=== PATIENT | male | born 1995 | race African-American/Black ===

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

== ENCOUNTER 2018-07-28 18:25 | Emergency (ER) | payer MEDICAID, OTHER ==
[2018-07-28] MEDS ORDERED: IPRATROPIUM/ALBUTEROL 0.5-2.5 MG/3 ML AMPUL NEB ONE (19:37)
[2018-07-28] MEDS ORDERED: PREDNISONE 20 MG TABLET PO ONE (19:38)
--- NOTE | 2018-07-28 19:42 | ER Document Report ---
ED Respiratory Problem - General Chief Complaint: Asthma Exacerbation Stated Complaint: DIFFICULTY BREATHING Time Seen by Provider: 07/28/18 19:37 Mode of Arrival: Ambulatory Information source: Patient Notes: 23-year-old male presented to ED for complaint of exacerbation of asthma with wheezing and shortness of breath. He states that he was seen last night by EMS and given a breathing treatment and then refused to come to the emergency room and stayed home. He states he is out of his albuterol nebulizer at home and became very short of breath and difficulty breathing today so his sister brought him to the emergency room. Patient does have a O2 sat of 99% but he is wheezing inspiratory and expiratory. He is short of breath. Patient will be treated with 1 DuoNeb and 2 albuterol as well as prednisone get a chest x-ray and if the chest x-ray does not show pneumonia he will be discharged home with refills for his DuoNeb as well as a prescription for prednisone. TRAVEL OUTSIDE OF THE [place] IN LAST 30 DAYS: No - HPI Patient complains to provider of: Cough, Short of breath, Other Onset: Yesterday - Wheezing Duration: Intermittent episodes Initiating Event: URI Quality of pain: Other - Tight Severity: Mild Pain Level: 1 Context: Hx asthma Cough: Nonproductive Sputum amount: None At home treatment: Bronchodilators Associated symptoms: Cough, Short of breath, Wheezing Similar symptoms previously: Yes Recently seen / treated by doctor: No - Related Data Allergies/Adverse Reactions: No Known Allergies Allergy (Verified 02/28/15 20:39) Past Medical History - General Information source: Patient - Social History Smoking Status: Never Smoker Frequency of alcohol use: None Drug Abuse: None Occupation: Sorting recycling Lives with: Family Family History: Arthritis, DM, Hypertension, Malignancy Patient has suicidal ideation: No Patient has homicidal ideation: No - Past Medical History Cardiac Medical History: Reports: Hx Hypertension Pulmonary Medical History: Reports: Hx Asthma EENT Medical History: Reports: None Neurological Medical History: Reports: None Endocrine Medical History: Reports: None Renal/ Medical History: Reports: None Malignancy Medical History: Reports None GI Medical History: Reports: None Musculoskeletal Medical History: Reports Hx Musculoskeletal Trauma Skin Medical History: Reports None Psychiatric Medical History: Reports: Hx Attention Deficit Hyperactivity Disorder Traumatic Medical History: Reports: None Infectious Medical History: Reports: None Past Surgical History: Reports: Hx Adenoidectomy, Hx Tonsillectomy - Immunizations Hx Diphtheria, Pertussis, Tetanus Vaccination: Yes Review of Systems - Review of Systems Constitutional: No symptoms reported EENT: No symptoms reported Cardiovascular: No symptoms reported Respiratory: Cough, Short of breath, Wheezing Gastrointestinal: No symptoms reported Genitourinary: No symptoms reported Male Genitourinary: No symptoms reported Musculoskeletal: No symptoms reported Skin: No symptoms reported Hematologic/Lymphatic: No symptoms reported Neurological/Psychological: No symptoms reported -: Yes All other systems reviewed and negative Physical Exam - Vital signs Vitals: Temp Pulse Resp BP Pulse Ox 99.2 F 64 20 145/77 H 99 07/28/18 18:29 07/28/18 18:29 07/28/18 18:29 07/28/18 18:29 07/28/18 18:29 Interpretation: Normal - General General appearance: Appears well, Alert - HEENT Head: Normocephalic, Atraumatic Eyes: Normal Pupils: PERRL - Respiratory Respiratory status: No respiratory distress Chest status: Nontender Breath sounds: Nonproductive cough, Wheezing. No: Productive cough, Rales, Rhonchi, Stridor Chest palpation: Normal - Cardiovascular Rhythm: Regular Heart sounds: Normal auscultation Murmur: No - Abdominal Inspection: Normal Distension: No distension Bowel sounds: Normal Tenderness: Nontender Organomegaly: No organomegaly - Back Back: Normal, Nontender - Extremities General upper extremity: Normal inspection, Nontender, Normal color, Normal ROM, Normal temperature General lower extremity: Normal inspection, Nontender, Normal color, Normal ROM, Normal temperature, Normal weight bearing. No: Shanika's sign - Neurological Neuro grossly intact: Yes Cognition: Normal Orientation: AAOx4 Kristy Coma Scale Eye Opening: Spontaneous Kristy Coma Scale Verbal: Oriented [place] Coma Scale Motor: Obeys Commands [place] Coma Scale Total: 15 Speech: Normal Motor strength normal: LUE, RUE, LLE, RLE Sensory: Normal - Psychological Associated symptoms: Normal affect, Normal mood - Skin Skin Temperature: Warm Skin Moisture: Dry Skin Color: Normal Course - Re-evaluation Re-evalutation: 07/28/18 21:15 Patient treated with prednisone, DuoNeb, and 2 albuterol nebulizers. Patient's lungs are clear to auscultation he is able to speak in full sentences walks with a even steady gait and has been discharged home with a prescription for albuterol for his nebulizer as well as albuterol inhaler. He is also been sent home with a prescription for prednisone. Patient is to follow-up with his prior primary doctor. Patient has been given instructions not to wait till he gets in such bad condition before he comes back again. - Vital Signs Vital signs: Temp Pulse Resp BP Pulse Ox 98.2 F 69 17 145/70 H 100 07/28/18 21:03 07/28/18 21:03 07/28/18 21:03 07/28/18 21:03 07/28/18 21:03 - Diagnostic Test Radiology reviewed: Image reviewed, Reports reviewed Discharge - Discharge Clinical Impression: Asthma exacerbation Qualifiers: Asthma severity: moderate Asthma persistence: unspecified Qualified Code(s): J45.901 - Unspecified asthma with (acute) exacerbation Condition: Stable Disposition: HOME, SELF-CARE Instructions: Family Physicians / Practices Additional Instructions: ASTHMA: You have been diagnosed as having asthma. This is a condition where there is episodic tightness in the bronchial tubes. Allergies, infections, and polluted or cold air may be contributing factors. Emergency treatment of a severe asthma attack may include adrenaline shots, or bronchodilator aerosol. You may feel lightheaded, have a decreased exercise tolerance and a rapid pulse for an hour or two. Rest and get plenty of fluids. Home treatment of asthma requires bronchodilator drugs. These can be admin istered by injection, inhalation, or by mouth. Antibiotics and corticosteroids may be required for some patients. You should avoid chemical fumes, dusts, pollens, and exercising in very cold or dry air. If you smoke, stop!! If you develop a fever, increased wheezing, chest pain, or severe shortness of breath, you should contact the doctor immediately. STEROID MEDICATION: You have been given an injection of or oral medicine of the cortisone/steroid class. This medication is used to control inflammation or allergy. Morgan t is usually only given for a short period of time, until the acute process subsides. There are usually no side effects from short-term use of cortisone-like medications. Some persons feel an increased sense of well-being and are not sleepy at bedtime. Long-term use of cortisone medications is best avoided, unless required for a severe condition. If your condition does not remit, or relapses after the course of corticosteroid medication, you should consult your physician. INHALED BRONCHODILATORS: You have received treatment(s) of and/or prescription for an inhaled bronchodilator -- a medication which stimulates the airways in the lung to dilate. This improves the flow of air in asthma, bronchitis, and emphysema. These medicines have some similarity to adrenaline, and can cause similar side effects: shakiness, racing heart, and a sense of nervousness. These side effects decrease with time. Contact your doctor if these side effects are severe. Do not over-use the medicine. Too-frequent use of the inhaler may make it ineffective. Call your doctor if the inhaler is not controlling your symptoms at the prescribed doses. USE OF ACETAMINOPHEN (Tylenol): Acetaminophen may be taken for pain relief or fever control. It's much safer than aspirin, offering a wider range of "safe" dosages. It is safe during . Some brand names are Tylenol, Panadol, Datril, Anacin 3, Tempra, and Liquiprin. Acetaminophen can be repeated every four hours. The following are maximum recommended dosages: WEIGHT Dose Drops Elixir Chewable(80mg) (LBS.) drprs=droppers tsp=teaspoon 6 40 mg 0.4 ml (1/2) 6-11 80 mg 0.8 ml (full) tsp 1 tab 12-16 120 mg 1 1/2 drprs 3/4 tsp 1 1/2 tabs 17-23 160 mg 2 drprs 1 tsp 2 tabs 24-30 240 mg 3 drprs 1 1/2 tsp 3 tabs 30-35 320 mg 2 tsp 4 tabs 36-41 360 mg 2 1/4 tsp 4 1/2 tabs 42-47 400 mg 2 1/2 tsp 5 tabs 48-53 480 mg 3 tsp 6 tabs 54-59 520 mg 3 1/4 tsp 6 1/2 tabs 60-64 560 mg 3 1/2 tsp 7 tabs 65-70 600 mg 3 3/4 tsp 7 1/2 tabs 71-76 640 mg 4 tsp 8 tabs 77-82 720 mg 4 1/2 tsp 9 tabs 83-88 800 mg 5 tsp 10 tabs >89 pounds or adults 650 mg to 900 mg Acetaminophen can be repeated every four hours. Maximum dose not to exceed 4000 mg a day. These maximum recommended dosages are slightly higher than the dosages written on the product container, but these dosages are very safe and below the toxic dosage for acetaminophen. FOLLOW-UP CARE: If you have been referred to a physician for follow-up care, call the physicians office for an appointment as you were instructed or within the next two days. If you experience worsening or a significant change in your symptoms, notify the physician immediately or return to the Emergency Department at any time for re-evaluation. Prescriptions: Albuterol Sulfate [Ventolin 0.083% Neb 2.5 mg/3 mL Ampul] 2.5 mg NEB Q4HP PRN #25 vial.neb PRN Reason: Prednisone [Deltasone 20 mg Tablet] 3 tab PO DAILY 5 Days tablet Forms: Elevated Blood Pressure, Parent Work Note, Return to Work
--- NOTE | 2018-07-28 20:23 | RADIOLOGY REPORT (SQ) ---
EXAM DESCRIPTION: XR CHEST 2 VIEWS COMPLETED DATE/TME: 07/28/2018 19:38 CLINICAL HISTORY: 23 years, Male, cough asthma exacerbation COMPARISON: EXAM DESCRIPTION: CLINICAL HISTORY: cough asthma exacerbation COMPARISON: None. FINDINGS: Two views of the chest are submitted. Cardiac silhouette appears normal. No focal parenchymal or pleural disease. No acute bony abnormality. There is no significant pulmonary vascular engorgement. IMPRESSION: No evidence of acute cardiopulmonary disease. NUMBER OF VIEWS: TECHNIQUE: LIMITATIONS: None. FINDINGS: IMPRESSION: copyright 2010 [employer]- All Rights Reserved
[2018-07-28] MEDS: ALBUTEROL SULFATE 0.083% NEB 2.5 MG/3 ML AMPUL NEB SCH ×2 (20:28→20:48)
[2018-07-28 21:04] VITALS: BP 145/70
[2018-07-28] MEDS ORDERED: ALBUTEROL SULFATE HFA (90 MCG/PUFF) 8 GM MDI (1 MDI/ER DISP) IH ONE (21:08)
== END 2018-07-28 21:20 | disposition home or self-care (01) ==
LOC: ER 18:25
DX: J45.901 Unspecified asthma with (acute) exacerbation (principal); R06.02 Shortness of breath; R05 Cough; I10 Essential (primary) hypertension
CPT/HCPCS: 94640 ×2; 99284; 71046; J7512; J3490; J7620

== ENCOUNTER 2018-09-25 09:56 | Emergency (ER) | payer MEDICAID ==
[2018-09-25 10:05] VITALS: BP 118/62
[2018-09-25] MEDS ORDERED: HYDROCODONE/ACETAMINOPHEN 5-325 MG TABLET PO ONE (10:26)
--- NOTE | 2018-09-25 10:40 | ER Document Report ---
HPI - HPI Patient complains to provider of: Right shoulder, right hand pain Time Seen by Provider: 09/25/18 10:21 Quality of pain: Achy Pain Level: 2 Context: Patient states that he injured his right shoulder playing football 4 years ago and has had chronic intermittent right shoulder pain since then. Patient denies any new injury to the shoulder. Patient also complains of right hand pain that started yesterday after dropping a weight on his hand. Patient is right-hand dominant. Patient complains of right hand swelling. Patient was told that he would need surgery on his shoulder but he never followed up. Associated Symptoms: Other - Right hand, right shoulder pain Exacerbated by: Movement Relieved by: Denies Similar symptoms previously: Yes Recently seen / treated by doctor: No - ROS ROS below otherwise negative: Yes Systems Reviewed and Negative: Yes All other systems reviewed and negative - CONSTITUTIONAL Constitutional: DENIES: Fever, Chills - NEURO Neurology: DENIES: Weakness - MUSCULOSKELETAL Musculoskeletal: REPORTS: Extremity pain - R shoulder, R hand. DENIES: Back Pain, Neck Pain - DERM Skin Color: Normal Skin Problems: None Past Medical History - General Information source: Patient - Social History Smoking Status: Never Smoker Chew tobacco use (# tins/day): No Frequency of alcohol use: None Drug Abuse: None Occupation: none Lives with: Family Family History: Arthritis, DM, Hypertension, Malignancy Patient has suicidal ideation: No Patient has homicidal ideation: No Pulmonary Medical History: Reports: Hx Asthma Renal/ Medical History: Denies: Hx Peritoneal Dialysis Musculoskeletal Medical History: Reports Hx Musculoskeletal Trauma Psychiatric Medical History: Reports: Hx Attention Deficit Hyperactivity Disorder Past Surgical History: Reports: Hx Adenoidectomy, Hx Tonsillectomy - Immunizations Hx Diphtheria, Pertussis, Tetanus Vaccination: Yes Vertical Provider Document - CONSTITUTIONAL Agree With Documented VS: Yes Exam Limitations: No Limitations General Appearance: WD/WN, No Apparent Distress - INFECTION CONTROL TRAVEL OUTSIDE OF THE [place] IN LAST 30 DAYS: No - HEENT HEENT: Atraumatic, Normocephalic - NECK Neck: Normal Inspection, Supple - RESPIRATORY Respiratory: Breath Sounds Normal, No Respiratory Distress - CARDIOVASCULAR Cardiovascular: Regular Rate, Regular Rhythm Pulses: Normal: Radial - BACK Back: Normal Inspection - MUSCULOSKELETAL/EXTREMETIES Musculoskeletal/Extremeties: MAEW, FROM, Tender - Tenderness to right shoulder joint over AC joint with abduction, patient with full range of motion, no d islocation or deformity. Patient with right hand tenderness over fifth MCP joint with overlying edema. No radial medial or ulnar nerve deficits., Edema - r hand - NEURO Level of Consciousness: Awake, Alert, Appropriate Motor/Sensory: No Motor Deficit, No Sensory Deficit - DERM Integumentary: Warm, Dry, No Rash Course - Vital Signs Vital signs: Temp Pulse Resp BP Pulse Ox 98.3 F 80 18 118/62 97 09/25/18 10:04 09/25/18 10:04 09/25/18 10:04 09/25/18 10:04 09/25/18 10:04 - Diagnostic Test Radiology reviewed: Image reviewed, Reports reviewed Procedures - Immobilization Right Hand Pre-Proc Neuro Vasc Exam: Normal Immobilizer type: Bravo wrap Performed by: PCT Post-Proc Neuro Vasc Exam: Normal Alignment checked and good: Yes Discharge - Discharge Clinical Impression: Right hand pain Chronic shoulder pain Qualifiers: Laterality: right Qualified Code(s): M25.511 - Pain in right shoulder Sprain of right hand Qualifiers: Encounter type: initial encounter Qualified Code(s): S63.91XA - Sprain of unspecified part of right wrist and hand, initial encounter Condition: Stable Disposition: HOME, SELF-CARE Instructions: Bravo Wrap ([facility]), Ice & Elevation ([facility]), Shoulder Injury ([facility]), Sprain ([facility]) Additional Instructions: Return immediately for any new or worsening symptoms Followup with your primary care provider, call tomorrow to make a followup appointment Follow-up with orthopedics for further evaluation, call today to make a follow- up appointment Prescriptions: Naproxen [Naprosyn 250 Nmg Tablet] 1 tab PO BID #14 tablet Referrals: [facility] [Provider Group] - Follow up as needed
--- NOTE | 2018-09-25 10:58 | RADIOLOGY REPORT (SQ) ---
EXAM DESCRIPTION: SHOULDER RIGHT 2 OR MORE VIEWS COMPLETED DATE/TIME: 09/25/2018 10:49 am REASON FOR STUDY: r shoulder pain, hx dislocation COMPARISON: None. NUMBER OF VIEWS: Three views. TECHNIQUE: Internal rotation, external rotation, and Y view images acquired of the right shoulder. LIMITATIONS: None. FINDINGS: MINERALIZATION: Normal. BONES: No acute fracture or dislocation. No worrisome bone lesions. JOINTS: No dislocation. The glenohumeral joint is in anatomic apposition at the time of imaging. VISUALIZED LUNGS AND RIBS: No pneumothorax. No rib fracture. SOFT TISSUES: No radiopaque foreign body. OTHER: No other significant finding. IMPRESSION: No fracture or dislocation of the right shoulder. The glenohumeral joint is in anatomic apposition at the time of imaging. Joint spaces are preserved. TECHNICAL DOCUMENTATION: JOB ID: [id number] [employer]- All Rights Reserved Reading location - IP/workstation name: [email or web address]
--- NOTE | 2018-09-25 10:59 | RADIOLOGY REPORT (SQ) ---
EXAM DESCRIPTION: HAND RIGHT 3 VIEWS COMPLETED DATE/TIME: 09/25/2018 10:49 am REASON FOR STUDY: r hand crushed by weight COMPARISON: 10/21/2016 EXAM PARAMETERS: NUMBER OF VIEWS: Three views. TECHNIQUE: AP, lateral and oblique radiographic images acquired of the right hand. LIMITATIONS: None. FINDINGS: MINERALIZATION: Normal. BONES: There is a healed fracture of the 5th metacarpal. No evidence of an acute fracture or disloca tion. There is slight soft tissue swelling dorsally. JOINTS: No effusions. SOFT TISSUES: No soft tissue swelling. No foreign body. OTHER: No other significant finding. IMPRESSION: Soft tissue swelling dorsally. No acute fracture. TECHNICAL DOCUMENTATION: JOB ID: [id number] [employer]- All Rights Reserved Reading location - IP/workstation name: [email or web address]
== END 2018-09-25 11:18 | disposition home or self-care (01) ==
LOC: ER 09:56
DX: S63.91XA Sprain of unspecified part of right wrist and hand, initial encounter (principal); W20.8XXA Other cause of strike by thrown, projected or falling object, initial encounter; Y93.B3 Activity, free weights; G89.29 Other chronic pain; M25.511 Pain in right shoulder; M79.641 Pain in right hand
CPT/HCPCS: 99283

== ENCOUNTER 2018-10-16 21:02 | Emergency (ER) | payer MEDICAID ==
--- NOTE | 2018-10-17 01:21 | ER Document Report ---
ED Skin Rash/Insect Bite/Abscs - General Information source: Patient, Parent TRAVEL OUTSIDE OF THE [place] IN LAST 30 DAYS: No - HPI Patient complains to provider of: Skin rash/lesion Onset: Last week Onset/Duration: Gradual, Worse Quality of pain: No pain Severity: Moderate Pain Level: 3 Skin Character: Papules. No: Blanching, Bullous, Drainage, Erythema Skin Temperature: Warm Quality of rash: No: Itchy, Painful, Burning Exacerbated by: Denies Relieved by: Denies Similar symptoms previously: No Recently seen / treated by doctor: No - General Chief Complaint: Rash Stated Complaint: SKIN PROBLEM Time Seen by Provider: 10/17/18 01:13 Primary Care Provider: MAX ESTEBAN DO [ACTIVE STAFF] - Follow up as needed Notes: Patient is a 23-year-old male comes emergency room complaining of a rash that started anywhere from 4 days to a week ago. States it started on his left arm and has since spread to both arms and both buttocks areas. Denies it being on his chest or his back no facial involvement no lower extremity involvement. Patient denies any pruritus he denies any pain he does state that there is a small patch on his left inner arm that he is not sure if it came first or after. He denies any fever or night sweats. Denies any other symptomatology except for the bumps on his buttocks and upper extremities. (OFE MURPHY) - Related Data Allergies/Adverse Reactions: No Known Allergies Allergy (Verified 02/28/15 20:39) Past Medical History - General Information source: Patient, Parent - Social History Smoking Status: Never Smoker Cigarette use (# per day): No Chew tobacco use (# tins/day): No Smoking Education Provided: No Frequency of alcohol use: None Drug Abuse: None Family History: Reviewed & Not Pertinent, Arthritis, DM, Hypertension, Malignancy - Past Medical History Cardiac Medical History: Reports: Hx Hypertension Pulmonary Medical History: Reports: Hx Asthma Renal/ Medical History: Denies: Hx Peritoneal Dialysis Musculoskeletal Medical History: Reports Hx Musculoskeletal Trauma Psychiatric Medical History: Reports: Hx Attention Deficit Hyperactivity Disorder Past Surgical History: Reports: Hx Adenoidectomy, Hx Tonsillectomy - Immunizations Hx Diphtheria, Pertussis, Tetanus Vaccination: Yes Review of Systems - Review of Systems Constitutional: No symptoms reported EENT: No symptoms reported Cardiovascular: No symptoms reported Respiratory: No symptoms reported Gastrointestinal: No symptoms reported Genitourinary: No symptoms reported Male Genitourinary: No symptoms reported Musculoskeletal: No symptoms reported Skin: See HPI, Rash Hematologic/Lymphatic: No symptoms reported Neurological/Psychological: No symptoms reported Physical Exam - Vital signs Interpretation: Hypertensive - Vital signs Vitals: Temp Pulse Resp BP Pulse Ox 98.5 F 59 L 20 142/83 H 98 10/16/18 21:34 10/16/18 21:34 10/16/18 21:34 10/16/18 21:34 10/16/18 21:34 - Notes Notes: PHYSICAL EXAMINATION: GENERAL: Well-appearing, well-nourished and in no acute distress. HEAD: Atraumatic, normocephalic. EYES: Pupils equal round and reactive to light, extraocular movements intact, sclera anicteric, conjunctiva are normal. ENT: Nares patent, oropharynx clear without exudates. Moist mucous membranes. NECK: Normal range of motion, supple without lymphadenopathy LUNGS: Breath sounds clear to auscultation bilaterally and equal. No wheezes rales or rhonchi. HEART: Regular rate and rhythm without murmurs NEUROLOGICAL: Normal speech, normal gait. Normal sensory, motor exams PSYCH: Normal mood, normal affect. SKIN: Examination patient's area of concern is as stated in his H&P is his upper extremities and is buttocks bilaterally. There is no indication of the rash on his anterior chest or back or lower extremities. Examination of this area is shows a scattered pattern of different size varying lesions that ranging from a millimeter up to 4 mm in diameter. There are darkening color and almost a tag- like presentation. They do not have a punctate middle can be visualized. There is no erythema base to them. Distribution seems to be more concentrated on the bilateral buttocks areas and less on the upper extremities. There is a area that is circular in nature on the anterior portion of the left arm it looks like some viral kind of presentation. Where it is more of a herald type patch presentation. Patient's presentation being nonpleuritic is moving his away any type of infective state or dermatitis kind of problem. (OFE MURPHY) Course - Re-evaluation Re-evalutation: 10/17/18 01:[address] Opal Carter to come in and take a look at it as well . he believes it is a a non-serious type of a presentation of rash on sure as to exactly what it is believes is more of a viral type of exanthem that will probably be self-limited and should disappear on its own after a week or 10 days. He feels as if the patient can get through the weekend if it is not starting to fade even more than he will need to follow-up with the dermatology. We will try to find him a local informatics scientist that they can contact the office to see if they can accommodate him. He is been instructed that should he spike a fever or have any other concerns return to ER for recheck. 10/17/18 01:21 (OFE MURPHY) 10/17/18 05:25 I evaluated the patient in conjunction with the physician's dental laboratory assistant. Patient is a rash actually is very similar to pityriasis and that he has a herald patch as well as multiple small erythematous nodule type areas. They are not painful. They are not pruritic. There are things that he does not have lesions on his torso. They are mainly on his extremities. He does not have fevers or systemic symptoms. Otherwise looks well. I do not see anything concerning about the rash. There is no purulence. No drainage. There is no bullae. No purpura. Informed mother that I suspect the rash probable likely go away on its own and next week. If the rash does not improve then they should follow-up with the informatics scientist. I encouraged him to call the informatics scientist to make a follow-up appointment. Encouraged him to return to ER if he has worsening of the rash, fevers, any drainage, or if he feels that he is worsening in any way. Patient and family agree with plan patient will be discharged home. Dictation of this chart was performed using voice recognition software; therefore, there may be some unintended grammatical errors. (OPAL CARTER) - Vital Signs Vital signs: Temp Pulse Resp BP Pulse Ox 97.6 F 65 20 128/68 H 99 10/17/18 01:44 10/17/18 01:44 10/17/18 01:44 10/17/18 01:44 10/17/18 01:44 Discharge - Discharge Clinical Impression: Rash and nonspecific skin eruption Disposition: HOME, SELF-CARE Instructions: Viral Rash ([facility]) Additional Instructions: As Dr. Peter instructed you this is probably a viral kind of a presentation and will be self-limited over the course of a week to 10 days. If is not fading by the end of the holiday weekend he should contact a informatics scientist to have them take a look at as well. If you do not have a contact for informatics scientist she can talk to your primary care provider who should really give you a referral to one. We do not have a informatics scientist locally that we know of to recommend ER however as stated if you find your primary care provider they should be able to find you on. Forms: Elevated Blood Pressure Referrals: MAX ESTEBAN, DO [ACTIVE STAFF] - Follow up as needed
[2018-10-17 01:46] VITALS: BP 128/68
== END 2018-10-17 01:36 | disposition home or self-care (01) ==
LOC: ER 21:02
DX: R21 Rash and other nonspecific skin eruption (principal); I10 Essential (primary) hypertension
CPT/HCPCS: 99283

== ENCOUNTER 2019-02-07 04:22 | Emergency (ER) | payer MEDICAID ==
[2019-02-07] MEDS ORDERED: CEFTRIAXONE INJ 250 MG VIAL IM ONE (05:16)
[2019-02-07] MEDS ORDERED: AZITHROMYCIN 250 MG TABLET PO ONE (05:16)
[2019-02-07] MEDS ORDERED: LIDOCAINE 1% INJ-PF (10 MG/ML) 30 ML SDV IM ONE (05:16)
--- NOTE | 2019-02-07 05:18 | ER Document Report ---
HPI - HPI Time Seen by Provider: 02/07/19 04:48 Pain Level: 3 Notes: Patient is a 24-year-old male presenting to the emergency department requesting medication treatment for chlamydia. Patient reports approximately 1 week ago he had a positive chlamydia test at the health department. He states they gave him 1 dose of medication there told him to go eat and instructed him to take a second dose of medication. He states he lost the medication and did not take it. He denies any new complaints or symptoms. Past Medical History - General Information source: Patient - Social History Smoking Status: Never Smoker Family History: Reviewed & Not Pertinent, Arthritis, DM, Hypertension, Malignancy - Past Medical History Cardiac Medical History: Reports: Hx Hypertension Pulmonary Medical History: Reports: Hx Asthma Renal/ Medical History: Denies: Hx Peritoneal Dialysis Musculoskeletal Medical History: Reports Hx Musculoskeletal Trauma Psychiatric Medical History: Reports: Hx Attention Deficit Hyperactivity Disorder Past Surgical History: Reports: Hx Adenoidectomy, Hx Tonsillectomy - Immunizations Hx Diphtheria, Pertussis, Tetanus Vaccination: Yes Vertical Provider Document - CONSTITUTIONAL Notes: PHYSICAL EXAMINATION: GENERAL: Well-appearing, well-nourished and in no acute distress. HEAD: Atraumatic, normocephalic. EYES: Pupils equal round extraocular movements intact, conjunctiva are normal. ENT: Nares patent NECK: Normal range of motion LUNGS: No respiratory distress Musculoskeletal: Normal range of motion NEUROLOGICAL: Normal speech, normal gait. PSYCH: Normal mood, normal affect. SKIN: Warm, Dry, normal turgor, no rashes or lesions noted. - INFECTION CONTROL TRAVEL OUTSIDE OF THE [place] IN LAST 30 DAYS: No Course - Re-evaluation Re-evalutation: Patient declines any STD testing here in the emergency department today. He will be given the standard STD treatment which consists of Rocephin and azithromycin. He will follow-up with health department in 1 week for retesting. The patient's emergency department workup and current diagnosis were explained to the patient and or family. Follow-up instructions were provided. Medications if prescribed were discussed. Instructions for when to return to the emergency department including specific worrisome symptoms were discussed with the patient and/or family. - Vital Signs Vital signs: Temp Pulse Resp BP Pulse Ox 98.1 F 61 16 135/79 H 98 02/07/19 04:26 02/07/19 04:02/07/19 04:02/07/19 04:02/07/19 04:26 Discharge - Discharge Clinical Impression: STD exposure Condition: Stable Disposition: HOME, SELF-CARE Additional Instructions: You were seen in the emergency department today with concerns for STD exposure. You were treated here in the emergency department with 1000 mg of azithromycin and 250 mg of Rocephin. Please follow-up with health department in 1 week for retest. No unprotected sexual intercourse for 7 to 10 days.
[2019-02-07 06:02] VITALS: BP 123/77
== END 2019-02-07 06:14 | disposition home or self-care (01) ==
LOC: ER 04:22
DX: Z20.2 Contact with and (suspected) exposure to infections with a predominantly sexual mode of transmission (principal); I10 Essential (primary) hypertension; J45.909 Unspecified asthma, uncomplicated
CPT/HCPCS: 99283; Q0144; J3490; J0696

== ENCOUNTER 2019-05-29 19:56 | Emergency (ER) | payer SELFPAY ==
--- NOTE | 2019-05-29 21:09 | ER Document Report ---
ED Medical Screen (RME) - General Chief Complaint: Urinary Problem Stated Complaint: POSSIBLE UTI,STD TESTING Time Seen by Provider: 05/29/19 20:55 Notes: Patient is a 24-year-old male who presents the emergency department with hematuria. He states his symptoms started 2 days ago. He denies any pain. He was sexually active without protection and he is worried about possible STDs. Exam: Soft, nontender mid lower abdomen. No flank pain noted. I have greeted and performed a rapid initial assessment of this patient. A comprehensive ED assessment and evaluation of the patient, analysis of test results and completion of medical decision making process will be conducted by an additional ED providers. TRAVEL OUTSIDE OF THE [place] IN LAST 30 DAYS: No - Related Data Allergies/Adverse Reactions: No Known Allergies Allergy (Verified 02/28/15 20:39) Home Medications: albuterol inhaler prn Past Medical History - Past Medical History Cardiac Medical History: Reports: Hx Hypertension Pulmonary Medical History: Reports: Hx Asthma Renal/ Medical History: Denies: Hx Peritoneal Dialysis Musculoskeltal Medical History: Reports Hx Musculoskeletal Trauma Psychiatric Medical History: Reports: Hx Attention Deficit Hyperactivity Disorder Past Surgical History: Reports: Hx Adenoidectomy, Hx Tonsillectomy - Immunizations Hx Diphtheria, Pertussis, Tetanus Vaccination: Yes Physical Exam - Vital signs Vitals: Temp Pulse Resp BP Pulse Ox 98.0 F 63 20 124/67 100 05/29/19 20:50 05/29/19 20:50 05/29/19 20:50 05/29/19 20:50 05/29/19 20:50 Course - Vital Signs Vital signs: Temp Pulse Resp BP Pulse Ox 98.0 F 63 20 124/67 100 05/29/19 20:50 05/29/19 20:50 05/29/19 20:50 05/29/19 20:50 05/29/19 20:50
[2019-05-29 22:05] LABS: APPEARANCE,URINE CLEAR; BILIRUBIN,URINE NEGATIVE (NEGATIVE); COLOR,URINE YELLOW; GLUCOSE, URINE NEGATIVE (NEGATIVE); KETONES,URINE NEGATIVE (NEGATIVE); PROTEIN,URINE NEGATIVE (NEGATIVE); URINE SPECIFIC GRAVITY 1.019
[2019-05-29 22:17] LABS: ABSOLUTE EOSINOPHILS # (AUTO) 0.3 10^3/uL (0.0-0.6); ABSOLUTE LYMPHOCYTES (AUTO) 2.4 10^3/uL (0.5-4.7); ABSOLUTE MONOCYTES (AUTO) 0.6 10^3/uL (0.1-1.4); ABSOLUTE NEUT (AUTO) 1.8 10^3/uL (1.7-8.2); BASOPHILS % (AUTO) 0.4 % (0-2); EOSINOPHILS % (AUTO) 6.2 % (0-6); HEMATOCRIT 43.9 % (37.9-51.0); HEMOGLOBIN 14.5 g/dL (13.5-17.0); LYMPHOCYTES % (AUTO) 47.2 % (13-45); MEAN CORPUSCULAR HEMOGLOBIN 26.8 pg (27.0-33.4); MEAN CORPUSCULAR HGB CONC 33.1 g/dL (32.0-36.0); MEAN CORPUSCULAR VOLUME 81 fl (80-97); MONOCYTES % (AUTO) 11.3 % (3-13); PLATELET COUNT 238 10^3/uL (150-450); RED BLOOD COUNT 5.43 10^6/uL (4.35-5.55); RED CELL DISTRIBUTION WIDTH 14.1 % (11.5-14.0); SEGMENTED NEUTROPHILS % (AUTO) 34.9 % (42-78); TOTAL CELLS COUNTED % (AUTO) 100 %; WHITE BLOOD COUNT 5.2 10^3/uL (4.0-10.5)
[2019-05-29 22:29] LABS: ALBUMIN 4.4 g/dL (3.5-5.0); ALKALINE PHOSPHATASE 68 U/L (38-126); ANION GAP 8 (5-19); ASPARTATE AMINO TRANSFERASE 32 U/L (17-59); BILIRUBIN,DIRECT 0.2 mg/dL (0.0-0.4); BILIRUBIN,TOTAL 0.4 mg/dL (0.2-1.3); BLOOD UREA NITROGEN 19 mg/dL (7-20); CALCIUM 9.4 mg/dL (8.4-10.2); CARBON DIOXIDE 29 mmol/L (22-30); CHLORIDE 102 mmol/L (98-107); GLUCOSE 81 mg/dL (75-110); POTASSIUM 4.2 mmol/L (3.6-5.0); TOTAL PROTEIN 8.3 g/dL (6.3-8.2)
[2019-05-29 23:29] LABS: CHLAM PCR NOT DETECTED (NOT DETECT)
[2019-05-30] MEDS ORDERED: AZITHROMYCIN 1 GM SUSP PACKET PO ONE (01:58)
[2019-05-30] MEDS ORDERED: CEFTRIAXONE INJ 250 MG VIAL IM ONE (01:58)
--- NOTE | 2019-05-30 01:58 | ER Document Report ---
ED General - General Chief Complaint: Urinary Problem Stated Complaint: POSSIBLE UTI,STD TESTING Time Seen by Provider: 05/29/19 20:55 Mode of Arrival: Ambulatory Information source: Patient TRAVEL OUTSIDE OF THE [place] IN LAST 30 DAYS: No - HPI Notes: Patient presents with 2 days of dysuria and occasional hematuria. He states that a recent sexual partner told him that they have chlamydia and he is concerned that he may have a sexually transmitted disease as well. He denies any knowledge of any chronic medical problems. Patient states he has had normal urine today. He has had no blood in his urine since yesterday. The dysuria is a sharp pain when he urinates. It is worse with urinating better without. It does radiate up his penis. It is mild to moderate in intensity. - Related Data Allergies/Adverse Reactions: No Known Allergies Allergy (Verified 02/28/15 20:39) Home Medications: albuterol inhaler prn Past Medical History - General Information source: Patient - Social History Smoking Status: Never Smoker Frequency of alcohol use: None Drug Abuse: None Family History: Reviewed & Not Pertinent, Arthritis, DM, Hypertension, Malignancy Patient has suicidal ideation: No Patient has homicidal ideation: No - Past Medical History Cardiac Medical History: Reports: Hx Hypertension Pulmonary Medical History: Reports: Hx Asthma Renal/ Medical History: Denies: Hx Peritoneal Dialysis Musculoskeletal Medical History: Reports Hx Musculoskeletal Trauma Psychiatric Medical History: Reports: Hx Attention Deficit Hyperactivity Disorder Past Surgical History: Reports: Hx Adenoidectomy, Hx Tonsillectomy - Immunizations Hx Diphtheria, Pertussis, Tetanus Vaccination: Yes Review of Systems - Review of Systems Constitutional: denies: Chills, Fever Cardiovascular: denies: Chest pain, Palpitations Respiratory: denies: Cough, Hemoptysis, Short of breath -: Yes All other systems reviewed and negative Physical Exam - Vital signs Vitals: Temp Pulse Resp BP Pulse Ox 98.0 F 63 20 124/67 100 05/29/19 20:50 05/29/19 20:50 05/29/19 20:50 05/29/19 20:50 05/29/19 20:50 Interpretation: Normal - General General appearance: Appears well, Alert - HEENT Head: Normocephalic, Atraumatic Eyes: Normal Pupils: PERRL - Respiratory Respiratory status: No respiratory distress Chest status: Nontender Breath sounds: Normal Chest palpation: Normal - Cardiovascular Rhythm: Regular Heart sounds: Normal auscultation Murmur: No - Abdominal Inspection: Normal Distension: No distension Bowel sounds: Normal Tenderness: Nontender Organomegaly: No organomegaly - Genitourinary Inspection: Normal Tenderness: Nontender Scrotum: Normal - Back Back: Normal, Nontender - Extremities General upper extremity: Normal inspection, Nontender, Normal color, Normal ROM, Normal temperature General lower extremity: Normal inspection, Nontender, Normal color, Normal ROM, Normal temperature, Normal weight bearing. No: Shanika's sign - Neurological Neuro grossly intact: Yes Cognition: Normal Orientation: AAOx4 Kristy Coma Scale Eye Opening: Spontaneous [place] Coma Scale Verbal: Oriented [place] Coma Scale Motor: Obeys Commands Kristy Coma Scale Total: 15 Speech: Normal Motor strength normal: LUE, RUE, LLE, RLE Sensory: Normal - Psychological Associated symptoms: Normal affect, Normal mood - Skin Skin Temperature: Warm Skin Moisture: Dry Skin Color: Normal Course - Vital Signs Vital signs: Temp Pulse Resp BP Pulse Ox 98.0 F 63 20 124/67 100 05/29/19 20:50 05/29/19 20:50 05/29/19 20:50 05/29/19 20:50 05/29/19 20:50 - Laboratory Result Diagrams: 05/29/19 21:50 05/29/19 21:50 Laboratory results interpreted by me: 05/29/19 05/29/19 05/29/19 20:55 21:50 21:50 MCH 26.8 L RDW 14.1 H Lymph % (Auto) 47.2 H Eos % (Auto) 6.2 H Seg Neutrophils % 34.9 L Creatinine 1.35 H Total Protein 8.3 H Urine Urobilinogen 2.0 H Leukocyte Esterase Rfl SMALL H Discharge - Discharge Clinical Impression: Urethritis, nonspecific Condition: Stable Disposition: HOME, SELF-CARE Additional Instructions: Your creatinine is elevated today. It is just above normal. This is a reflection of your kidney function. This should return to normal if you increase your fluid intake. Please have your creatinine level rechecked in the next 1 to 2 months by your family doctor. If you are unable to see your family doctor you may return to the emergency department for an evaluation.
[2019-05-30 02:48] VITALS: BP 127/75
== END 2019-05-30 02:35 | disposition home or self-care (01) ==
LOC: ER 19:56
DX: N34.2 Other urethritis (principal); R39.198 Other difficulties with micturition; R30.0 Dysuria; R31.9 Hematuria, unspecified; Z20.2 Contact with and (suspected) exposure to infections with a predominantly sexual mode of transmission; I10 Essential (primary) hypertension; J45.909 Unspecified asthma, uncomplicated
CPT/HCPCS: 99283; 96372; 36415; 87086; 85025; 80053; 81001; 87491; 87591; Q0144; J0696

== ENCOUNTER 2019-09-02 08:43 | Emergency (ER) | payer SELFPAY ==
--- NOTE | 2019-09-02 09:42 | RADIOLOGY REPORT (SQ) ---
EXAM DESCRIPTION: KNEE LEFT 4 VIEW IMAGES COMPLETED DATE/TIME: 09/02/2019 9:25 am REASON FOR STUDY: left knee injury COMPARISON: None. NUMBER OF VIEWS: Four views. TECHNIQUE: AP, lateral, and both oblique radiographic images acquired of the left knee. LIMITATIONS: None. FINDINGS: MINERALIZATION: Normal. BONES: No acute fracture or dislocation. No worrisome bone lesions. No significant osteophytes. JOINT: No effusion. No chondrocalcinosis. OTHER: No other significant finding. IMPRESSION: NEGATIVE STUDY OF THE LEFT KNEE. NO EXPLANATION FOR PAIN. TECHNICAL DOCUMENTATION: JOB ID: [id number] 2010 [employer]- All Rights Reserved Reading location - IP/workstation name: [email or web address]
[2019-09-02 10:24] VITALS: BP 135/65
--- NOTE | 2019-09-06 08:59 | ER Document Report ---
Entered by MACKENZIE HE SCRIBE 09/02/19 0950 Acting as scribe for:FREDO CHATMAN, ED Extremity Problem, Lower - General Chief Complaint: Knee Pain Stated Complaint: LEFT KNEE PAIN, LEFT KNUCKLE PAIN Time Seen by Provider: 09/02/19 09:30 Mode of Arrival: Wheelchair Information source: Patient Notes: This 24-year-old male patient presents to the emergency department today with complaints of left knee pain that began a few days ago while at football practice. Patient states he "got an interception and was trying to make someone miss" when he planted his left leg wrong and "heard a pop". Patient states his "whole knee" hurts, but the pop and initial pain was in the lateral left knee. Patient is able to ambulate with pain. TRAVEL OUTSIDE OF THE [place] IN LAST 30 DAYS: No - Related Data Allergies/Adverse Reactions: No Known Allergies Allergy (Verified 02/28/15 20:39) Home Medications: Albuteral Past Medical History - General Information source: Patient - Social History Smoking Status: Never Smoker Cigarette use (# per day): No Frequency of alcohol use: None Drug Abuse: None Lives with: Family Family History: Reviewed & Not Pertinent, Arthritis, DM, Hypertension, Malignancy Patient has suicidal ideation: No Patient has homicidal ideation: No - Past Medical History Cardiac Medical History: Reports: Hx Hypertension Pulmonary Medical History: Reports: Hx Asthma Musculoskeletal Medical History: Reports Hx Musculoskeletal Trauma Psychiatric Medical History: Reports: Hx Attention Deficit Hyperactivity Disorder Past Surgical History: Reports: Hx Adenoidectomy, Hx Tonsillectomy - Immunizations Hx Diphtheria, Pertussis, Tetanus Vaccination: Yes Review of Systems - Review of Systems Constitutional: No symptoms reported EENT: No symptoms reported Cardiovascular: No symptoms reported Respiratory: No symptoms reported Gastrointestinal: No symptoms reported Genitourinary: No symptoms reported Male Genitourinary: No symptoms reported Musculoskeletal: See HPI, Joint pain - left knee Skin: No symptoms reported Hematologic/Lymphatic: No symptoms reported Neurological/Psychological: No symptoms reported -: Yes All other systems reviewed and negative Physical Exam - Vital signs Vitals: Temp Pulse Resp BP Pulse Ox 98.1 F 66 16 138/85 H 98 09/02/19 08:51 09/02/19 08:51 09/02/19 08:51 09/02/19 08:51 09/02/19 08:51 - Notes Notes: Physical Exam: General: Alert, appears well. HEENT: Normocephalic. Atraumatic. PERRLA. Extraocular movements intact. Oropharynx clear. Neck: Supple. Respiratory: No respiratory distress. Abdominal: Normal Inspection. No distension. Extremities: Minimal tenderness with palpation along the lateral collateral ligament of the left knee. Complains of pain with passive flexion and extension at the extremes with the left knee. There is a very small joint effusion as well. Neurological: Normal cognition. AAOx4. Normal speech. Psychological: Normal affect. Normal Mood. Skin: Warm. Dry. Normal color. Course - Vital Signs Vital signs: Temp Pulse Resp BP Pulse Ox 98 F 85 16 135/65 H 100 09/02/19 10:23 09/02/19 10:23 09/02/19 10:23 09/02/19 10:23 09/02/19 10:23 Discharge - Discharge Clinical Impression: Left knee injury Qualifiers: Encounter type: initial encounter Qualified Code(s): S89.92XA - Unspecified injury of left lower leg, initial encounter Strain of left knee Qualifiers: Encounter type: initial encounter Qualified Code(s): S86.912A - Strain of unspecified muscle(s) and tendon(s) at lower leg level, left leg, initial encounter Condition: Good Disposition: HOME, SELF-CARE Instructions: Use of Crutches ([facility]), Ice & Elevation ([facility]), Knee Immobilizing Splint ([facility]), Sprained Knee ([facility]) Additional Instructions: Rest, ice and elevate left knee. See the referral doctor in followup. Please return here for any problems or concerns including but not limited to increaseing left knee pain. Prescriptions: Ibuprofen [Motrin 600 mg Tablet] 600 mg PO TID #30 tablet I personally performed the services described in the documentation, reviewed and edited the documentation which was dictated to the scribe in my presence, and it accurately records my words and actions.
== END 2019-09-02 10:24 | disposition home or self-care (01) ==
LOC: ER 08:43
DX: S86.912A Strain of unspecified muscle(s) and tendon(s) at lower leg level, left leg, initial encounter (principal); M25.562 Pain in left knee; M79.645 Pain in left finger(s); X50.1XXA Overexertion from prolonged static or awkward postures, initial encounter; Y93.61 Activity, american tackle football; I10 Essential (primary) hypertension
CPT/HCPCS: 99283

== ENCOUNTER 2019-09-27 02:43 | Emergency (ER) | payer SELFPAY ==
[2019-09-27] MEDS ORDERED: IPRATROPIUM/ALBUTEROL 0.5-2.5 MG/3 ML AMPUL NEB ONE ×2 (02:50→03:07)
[2019-09-27] MEDS ORDERED: ALBUTEROL SULFATE 0.083% NEB 2.5 MG/3 ML AMPUL NEB ONE (02:50)
[2019-09-27] MEDS ORDERED: ALBUTEROL SULFATE HFA (90 MCG/PUFF) 8 GM MDI (1 MDI/ER DISP) IH ONE ×2 (04:16→04:32)
[2019-09-27] MEDS ORDERED: PREDNISONE 20 MG TABLET PO ONE (04:16)
--- NOTE | 2019-09-27 04:16 | ER Document Report ---
HPI - HPI Time Seen by Provider: 09/27/19 03:03 Pain Level: Denies Context: Patient is a 24-year-old male with a history of asthma that comes emergency department for chief complaint of wheezing intermittently. He states he ran out of his inhaler. He denies cough, fever, sore throat, congestion, or any other sick symptoms. He denies smoking. He denies any other medical history or any other complaints. - CONSTITUTIONAL Constitutional: DENIES: Fever, Chills - EENT EENT: DENIES: Sore Throat, Ear Pain, Eye problems - NEURO Neurology: DENIES: Headache, Weakness, Vision blurred, Dizzinesss / Vertigo - CARDIOVASCULAR Cardiovascular: DENIES: Chest pain - RESPIRATORY Respiratory: REPORTS: Trouble Breathing. DENIES: Coughing - GASTROINTESTINAL Gastrointestinal: DENIES: Abdominal Pain, Black / Bloody Stools - URINARY Urinary: DENIES: Dysuria, Urgency, Frequency - REPRODUCTIVE Reproductive: DENIES: : - MUSCULOSKELETAL Musculoskeletal: DENIES: Extremity pain Past Medical History - General Information source: Patient - Social History Smoking Status: Never Smoker Chew tobacco use (# tins/day): No Frequency of alcohol use: Occasional Drug Abuse: None Lives with: Family Family History: Reviewed & Not Pertinent, Arthritis, DM, Hypertension, Malignancy Patient has homicidal ideation: No Pulmonary Medical History: Reports: Hx Asthma Renal/ Medical History: Denies: Hx Peritoneal Dialysis Musculoskeletal Medical History: Reports Hx Musculoskeletal Trauma Psychiatric Medical History: Reports: Hx Attention Deficit Hyperactivity Disorder Past Surgical History: Reports: Hx Adenoidectomy, Hx Tonsillectomy - Immunizations Hx Diphtheria, Pertussis, Tetanus Vaccination: Yes Vertical Provider Document - CONSTITUTIONAL General Appearance: WD/WN, No Apparent Distress - INFECTION CONTROL TRAVEL OUTSIDE OF THE [place] IN LAST 30 DAYS: No - HEENT HEENT: Atraumatic, Normal ENT Exam, Normocephalic - NECK Neck: Normal Inspection - RESPIRATORY Respiratory: Breath Sounds Normal, No Respiratory Distress. negative: Wheezing - Patient does have some mild expiratory wheezing on exam, speaks in full sentences however, no tachypnea, no signs distress, still has good air movement bilaterally. - CARDIOVASCULAR Cardiovascular: Regular Rate, Regular Rhythm. negative: Tachycardia - GI/ABDOMEN Gastrointestinal: Abdomen Soft, Abdomen Non-Tender. negative: Abdomen Tender - BACK Back: Normal Inspection - MUSCULOSKELETAL/EXTREMETIES Musculoskeletal/Extremeties: MAALLYSON, FROM, Non-Tender - NEURO Level of Consciousness: Awake, Alert, Appropriate Motor/Sensory: No Motor Deficit, No Sensory Deficit - DERM Integumentary: Warm, Dry, No Rash Course - Re-evaluation Re-evalutation: After a single DuoNeb wheezing resolved. No sick symptoms or fever noted. Appears to be mild asthma exacerbation with intermittent asthma flares. Patient provided with inhaler, spacer, steroids, discussed expectations, follow-up, return precautions. Patient states understanding and agreement. - Vital Signs Vital signs: Temp Pulse Resp BP Pulse Ox 98.7 F 84 13 147/97 H 95 09/27/19 03:02 09/27/19 02:49 09/27/19 02:49 09/27/19 02:49 09/27/19 02:49 Discharge - Discharge Clinical Impression: Wheezing Asthma exacerbation Qualifiers: Asthma severity: mild Asthma persistence: intermittent Qualified Code(s): J45.21 - Mild intermittent asthma with (acute) exacerbation Disposition: HOME, SELF-CARE Additional Instructions: Your evaluation is consistent with an asthma exacerbation Use the inhaler as provided with a spacer, take the prednisone as prescribed. Follow-up with primary care for additional management. Return if you worsen including difficulty breathing, fever, or any other concerning or worsening symptoms. Prescriptions: Prednisone [Deltasone 20 mg Tablet] 3 tab PO DAILY 4 Days #12 tablet Albuterol Sulfate [Proair HFA Inhalation Aerosol 8.5 gm MDI] 2 puff IH Q4H PRN #1 mdi PRN Reason:
[2019-09-27 04:44] VITALS: BP 133/84
== END 2019-09-27 04:45 | disposition home or self-care (01) ==
LOC: ER 02:43
DX: J45.21 Mild intermittent asthma with (acute) exacerbation (principal)
CPT/HCPCS: 94640; 99284; J7512; J7620

== ENCOUNTER 2019-10-10 18:40 | Emergency (ER) | payer SELFPAY ==
[2019-10-10] MEDS ORDERED: IBUPROFEN 800 MG TABLET PO ONE (19:10)
--- NOTE | 2019-10-10 19:12 | ER Document Report ---
ED Extremity Problem, Lower - General Chief Complaint: Knee Pain Stated Complaint: FALL/LEFT LEG PAIN Time Seen by Provider: 10/10/19 18:58 Primary Care Provider: SONU SMITH MD [ACTIVE PROVISIONAL STAFF] - Follow up in 3-5 days Mode of Arrival: Ambulatory Information source: Patient Notes: 24-year-old male presented to ED for pain in his left knee. He states he fell this afternoon off of a step reinjuring his left knee. He states about a month and a half ago he injured it playing football came to the emergency room was seen was told to follow-up with orthopedics but he has not followed up. He does have a lot of pain and swelling to the left lateral knee. Patient is alert oriented respirations regular nonlabored speaking in full sentences. He was walking on his leg but I have put him in a wheelchair due to the swelling. TRAVEL OUTSIDE OF THE [place] IN LAST 30 DAYS: No - HPI Patient complains to provider of: Injury, Pain, Swelling Location: Knee - Left lateral Occurred: This afternoon Where: [place]doors Onset/Duration: Sudden Quality of pain: Pressure Severity: Moderate Pain Level: 3 Context: Fell Recent injury: Yes Associated symptoms: Painful ambulation Exacerbated by: Hanging down, Movement, Walking Relieved by: Ice - Related Data Allergies/Adverse Reactions: No Known Allergies Allergy (Verified 10/10/19 18:54) Past Medical History - General Information source: Patient - Social History Smoking Status: Never Smoker Chew tobacco use (# tins/day): No Frequency of alcohol use: Occasional Drug Abuse: None Lives with: Family Family History: Reviewed & Not Pertinent, Arthritis, DM, Hypertension, Malignancy Patient has homicidal ideation: No - Past Medical History Cardiac Medical History: Reports: Hx Hypertension Pulmonary Medical History: Reports: Hx Asthma EENT Medical History: Reports: None Neurological Medical History: Reports: None Endocrine Medical History: Reports: None Renal/ Medical History: Reports: None Malignancy Medical History: Reports None GI Medical History: Reports: None Musculoskeletal Medical History: Reports Hx Musculoskeletal Trauma Skin Medical History: Reports None Psychiatric Medical History: Reports: Hx Attention Deficit Hyperactivity Disorder Traumatic Medical History: Reports: None Infectious Medical History: Reports: None Past Surgical History: Reports: Hx Adenoidectomy, Hx Tonsillectomy - Immunizations Hx Diphtheria, Pertussis, Tetanus Vaccination: Yes Review of Systems - Review of Systems Constitutional: No symptoms reported EENT: No symptoms reported Cardiovascular: No symptoms reported Respiratory: No symptoms reported Gastrointestinal: No symptoms reported Genitourinary: No symptoms reported Male Genitourinary: No symptoms reported Musculoskeletal: Joint pain - Left knee, Joint swelling - Left knee Skin: No symptoms reported Hematologic/Lymphatic: No symptoms reported Neurological/Psychological: No symptoms reported -: Yes All other systems reviewed and negative Physical Exam - Vital signs Vitals: Pulse Resp BP Pulse Ox 102 H 16 140/78 H 98 10/10/19 18:51 10/10/19 18:51 10/10/19 18:51 10/10/19 18:51 Interpretation: Normal - General General appearance: Appears well, Alert - HEENT Head: Normocephalic, Atraumatic Eyes: Normal Pupils: PERRL - Respiratory Respiratory status: No respiratory distress Chest status: Nontender Breath sounds: Normal Chest palpation: Normal - Cardiovascular Rhythm: Regular Heart sounds: Normal auscultation Murmur: No - Abdominal Inspection: Normal Distension: No distension Bowel sounds: Normal Tenderness: Nontender Organomegaly: No organomegaly - Back Back: Normal, Nontender - Extremities General upper extremity: Normal inspection, Nontender, Normal color, Normal ROM, Normal temperature General lower extremity: Normal color, Normal temperature. No: Shanika's sign Knee: Tender, Ecchymosis, Pain with ROM, Patellar tendon intact, Tender joint line. No: Abrasion, Deformity, Dislocation, Drawer's test instability, Instability, Joint effusion, Laceration, Laxity with valgus stress, Laxity with varus stress, Popliteal fossa tender, Unable to bear weight - Painful ambulation - Neurological Neuro grossly intact: Yes Cognition: Normal Orientation: AAOx4 Kristy Coma Scale Eye Opening: Spontaneous Monroe Coma Scale Verbal: Oriented Kristy Coma Scale Motor: Obeys Commands Monroe Coma Scale Total: 15 Speech: Normal Motor strength normal: LUE, RUE, LLE, RLE Sensory: Normal - Psychological Associated symptoms: Normal affect, Normal mood - Skin Skin Temperature: Warm Skin Moisture: Dry Skin Color: Normal Course - Re-evaluation Re-evalutation: 10/10/19 20:03 Discussed x-ray with patient. There is no acute injuries noted on the x-ray. Patient was given a written report of the x-ray and treated with Bravo wrap at this time. He states he has crutches at home. He did verbalize understanding and agreement with following up with orthopedics. Patient was given instructions on knee exercises. - Vital Signs Vital signs: Temp Pulse Resp BP Pulse Ox 98.1 F 87 18 134/80 H 100 10/10/19 20:43 10/10/19 20:43 10/10/19 20:43 10/10/19 20:43 10/10/19 20:43 - Diagnostic Test Radiology reviewed: Image reviewed, Reports reviewed Procedures - Immobilization Left Knee Time completed: 20:04 Pre-Proc Neuro Vasc Exam: Normal Immobilizer type: Bravo wrap Performed by: PCT Post-Proc Neuro Vasc Exam: Normal Alignment checked and good: Yes Discharge - Discharge Clinical Impression: Left knee injury Qualifiers: Encounter type: initial encounter Qualified Code(s): S89.92XA - Unspecified injury of left lower leg, initial encounter Condition: Stable Disposition: HOME, SELF-CARE Additional Instructions: SUSPECTED INTERNAL KNEE INJURY: The examiner of your injured knee suspects an internal injury to the cartilage or internal ligaments. This must be further investigated by an shredding specialist. The knee should be protected, ice packed, and elevated while awaiting your follow-up exam by the orthopedist. If there is severe swelling, severe pain, or any new symptoms while awaiting your exam, you should call the orthopedist. (If he/she is unavailable, call us or return for re-examination.) Patient refused knee immobilizer states he has 1 at home BRAVO WRAP: A compression dressing (bravo wrap) has been placed. This helps hold the area still. It limits swelling and internal bleeding. The wrap should be comfortably snug -- not tight. You should feel a sense of pressure, but not severe pain under the wrap. Unless the physician tells you otherwise, you can adjust the wrap for comfort. If the wrap causes symptoms suggesting it's too tight -- uncomfortable pressure, swelling or discoloration beyond the wrap, numbness, or severe pain -- you must loosen the wrap. If these symptoms don't resolve promptly, return for re-evaluation. Patient refused crutches states he has them at home Knee Exercise Program It's important to strengthen the muscles around the knee. This protects the injured area and stabilizes a knee that's been loosened by ligament injury. EARLY - Even when motion of the knee is painful (even when wearing a splint), you can begin isometric "quads" exercises. While sitting, hold the knee out, and contract the muscles to stiffen it. It shouldn't be straightened all the way -- stiffen it in a slightly-bent position. Lift the leg and draw a "T" with your foot, up to 100 times. When it becomes easy, add a weight on your foot. LATE - When the doctor advises you, you can begin moving the knee against resistance. The front muscles (quadriceps) are most important. While sitting at a [employer], straighten the knee forcefully while pushing a weight up with your ankle. Start with five to 10 pounds. Do 10 to 20 repetitions, increasing the weight as tolerated. Don't use more weight than is comfortable! Over a few weeks, work up to 35 to 50 pounds. Athletes should try to reach 70 to 90 pounds. ICE & ELEVATION: Apply ice packs frequently against the painful area. Many different schedules are recommended, such as "20 minutes on, 20 minutes off" or "one hour ice, two hours rest." If you need to work, you may need to go longer between ice treatments. You should plan to have the area ice packed AT LEAST one-fourth of the time. The ice should be applied over the wrap, tape, or splint, or over a layer of cloth -- not directly against the skin. Some ice bags have a built-in cloth and can be put directly on the skin. Your injured part should be elevated as much as possible over the next 48 hours. Try to keep the injury above the level of the heart. Avoid use of the injured area. Elevation and rest will decrease the swelling. USE OF ELPS-WZM-OAUIPNF IBUPROFEN: Ibuprofen (Advil, Nuprin, Medipren, Motrin IB) is a medication for fever and pain control. In addition, it has anti- inflammatory effects which may be beneficial, especially in the treatment of injuries. It's best to take ibuprofen with food. Persons with ulcer disease or allergy to aspirin should notify their physician of this before taking ibuprof en. Ibuprofen can be given every four to six hours, for a total of four doses daily. Age Pain or fever dose Antiinflammatory dose 6-8 yr 200 mg (1 tab) 200 mg (1 tab) 9-11 yr 200 mg (1 tab) 200-400 mg (1-2 tab) 11-14 yr 200-400 mg (1-2 tab) 400 mg (2 tab) 15-adult 400 mg (2 tab) 600 mg (3 tab) FOLLOW-UP CARE: If you have been referred to a physician for follow-up care, call the physicians office for an appointment as you were instructed or within the next two days. If you experience worsening or a significant change in your symptoms, notify the physician immediately or return to the Emergency Department at any time for re-evaluation. Forms: Return to Work Referrals: SONU SMITH MD [ACTIVE PROVISIONAL STAFF] - Follow up in 3-5 days
--- NOTE | 2019-10-10 19:33 | RADIOLOGY REPORT (SQ) ---
EXAM DESCRIPTION: KNEE LEFT 4 VIEW IMAGES COMPLETED DATE/TIME: 10/10/2019 6:16 pm REASON FOR STUDY: Fall pain injury. Follow-up. Fell off porch and football injury. 09/02/2019. COMPARISON: None. NUMBER OF VIEWS: Four views. TECHNIQUE: AP, lateral, and both oblique radiographic images acquired of the left knee. LIMITATIONS: None. FINDINGS: MINERALIZATION: Normal. BONES: No acute fracture or dislocation. No worrisome bone lesions. JOINT: No effusion. SOFT TISSUES: No soft tissue swelling. No radio-opaque foreign body. OTHER: No other significant finding. IMPRESSION: NEGATIVE STUDY OF THE LEFT KNEE. NO RADIOGRAPHIC EVIDENCE OF ACUTE INJURY. TECHNICAL DOCUMENTATION: JOB ID: [id number] 2010 [employer]- All Rights Reserved Reading location - IP/workstation name: [id number]
[2019-10-10 20:44] VITALS: BP 134/80
== END 2019-10-10 20:45 | disposition home or self-care (01) ==
LOC: ER 18:40
DX: S89.92XA Unspecified injury of left lower leg, initial encounter (principal); M79.605 Pain in left leg; M25.562 Pain in left knee; M79.89 Other specified soft tissue disorders; W19.XXXA Unspecified fall, initial encounter; I10 Essential (primary) hypertension; J45.909 Unspecified asthma, uncomplicated
CPT/HCPCS: 99283

== ENCOUNTER 2019-10-30 04:21 | Emergency (ER) | payer SELFPAY ==
[2019-10-30] MEDS ORDERED: CIPROFLOXACIN HCL/DEXAMETH OTIC DROP 7.5 ML AU ONE (04:47)
--- NOTE | 2019-10-30 04:48 | ER Document Report ---
HPI - HPI Time Seen by Provider: 10/30/19 04:40 Pain Level: 3 Context: Patient is a 24-year-old male that comes to the emergency department for chief complaint of bilateral ear pain that have been worsening over the past 3 to 4 days. Pain started on the left first. Patient admits that he digs in his ears frequently. He states he has seen some yellow drainage out of the ears. He states it is difficult to hear now and the ears are very painful but he denies nausea, vomiting, fever, sore throat, congestion, cough, or any other complaints. He denies any daily medications. Past medical history of asthma. - CONSTITUTIONAL Constitutional: DENIES: Fever, Chills - EENT EENT: REPORTS: Ear Pain. DENIES: Sore Throat - NEURO Neurology: DENIES: Headache - REPRODUCTIVE Reproductive: DENIES: : Past Medical History - General Information source: Patient - Social History Smoking Status: Never Smoker Frequency of alcohol use: Rare Drug Abuse: None Lives with: Family Family History: Reviewed & Not Pertinent, Arthritis, DM, Hypertension, Malignancy Patient has homicidal ideation: No - Past Medical History Cardiac Medical History: Reports: Hx Hypertension Pulmonary Medical History: Reports: Hx Asthma Musculoskeletal Medical History: Reports Hx Musculoskeletal Trauma Psychiatric Medical History: Reports: Hx Attention Deficit Hyperactivity Disorder Past Surgical History: Reports: Hx Adenoidectomy, Hx Tonsillectomy - Immunizations Hx Diphtheria, Pertussis, Tetanus Vaccination: Yes Vertical Provider Document - INFECTION CONTROL TRAVEL OUTSIDE OF THE [place] IN LAST 30 DAYS: No - HEENT HEENT: Atraumatic, Normocephalic. negative: Normal ENT Exam - There is obvious severe bilateral otitis externa with swollen canals and a purulent component. There is no abscess noted. There is tenderness over the tragus but there is no abnormality with the mastoid bilaterally. There is no swelling of the external ear, normal nasal, oral pharyngeal, eye exams. - NECK Neck: Normal Inspection - RESPIRATORY Respiratory: Breath Sounds Normal, No Respiratory Distress - CARDIOVASCULAR Cardiovascular: Regular Rate, Regular Rhythm - GI/ABDOMEN Gastrointestinal: Abdomen Soft, Abdomen Non-Tender - BACK Back: Normal Inspection - MUSCULOSKELETAL/EXTREMETIES Musculoskeletal/Extremeties: MAEW, FROM, Non-Tender - NEURO Level of Consciousness: Awake, Alert, Appropriate Motor/Sensory: No Motor Deficit, No Sensory Deficit - DERM Integumentary: Warm, Dry, No Rash Course - Re-evaluation Re-evalutation: Patient with severe otitis externa but otherwise exam is completely unremarkable. I was able to place bilateral ear wax without difficulty, eardrops applied, provided with Ciprodex to go home with, placed on oral antibiotics because of the severity. No other concerning findings. Discussed ENT follow-up and return precautions. Patient states understanding and agreement. Stable and well-appearing at time of discharge. - Vital Signs Vital signs: Temp Pulse Resp BP Pulse Ox 98.7 F 73 15 122/82 97 10/30/19 04:30 10/30/19 04:30 10/30/19 04:30 10/30/19 04:30 10/30/19 04:30 Discharge - Discharge Clinical Impression: Ear pain Qualifiers: Laterality: bilateral Qualified Code(s): H92.03 - Otalgia, bilateral Otitis externa Qualifiers: Otitis externa type: unspecified type Chronicity: acute Laterality: bilateral Qualified Code(s): H60.503 - Unspecified acute noninfective otitis externa, bilateral Condition: Stable Disposition: HOME, SELF-CARE Additional Instructions: You have severe ear canal infections in both ears. This is called otitis externa. You have dov placed in your ears, these will help you recover faster. Place 4 drops in each ear twice a day for 7 days. After the swelling comes down the dov will fall out of your ear on their own. I also recommend you take the oral antibiotic as prescribed to completion, take the ibuprofen for pain, you can also take Tylenol. I recommend that you follow-up with the ENT referral listed for recheck and additional care. Return if you worsen including swelling or redness at the ear, fever, vomiting, or any other concerning or worsening symptoms. Prescriptions: Amoxicillin Trihydrate [Amoxil 500 mg Capsule] 1,000 mg PO BID 7 Days #28 capsule Ibuprofen [Ibu] 800 mg PO TID PRN #21 tablet PRN Reason: Referrals: SOL CONTRERAS MD [ACTIVE STAFF] - Follow up in 3-5 days
[2019-10-30 05:46] VITALS: BP 125/77
== END 2019-10-30 05:45 | disposition home or self-care (01) ==
LOC: ER 04:21
DX: H60.503 Unspecified acute noninfective otitis externa, bilateral (principal); H92.03 Otalgia, bilateral; H92.13 Otorrhea, bilateral; I10 Essential (primary) hypertension; J45.909 Unspecified asthma, uncomplicated
CPT/HCPCS: 99283; J3490

== ENCOUNTER 2019-11-23 16:13 | Emergency (ER) | payer SELFPAY ==
[2019-11-23 16:20] VITALS: BP 133/75
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
== END 2019-11-23 16:43 | disposition home or self-care (01) ==
LOC: ER 16:13
DX: S83.92XA Sprain of unspecified site of left knee, initial encounter (principal); X50.0XXA Overexertion from strenuous movement or load, initial encounter; Y93.89 Activity, other specified; J45.909 Unspecified asthma, uncomplicated
CPT/HCPCS: 99282

== ENCOUNTER 2020-01-13 12:27 | Emergency (ER) | payer SELFPAY ==
[2020-01-13] MEDS ORDERED: AZITHROMYCIN 250 MG TABLET PO ONE (13:45)
[2020-01-13] MEDS ORDERED: CEFTRIAXONE INJ 250 MG VIAL IM ONE (13:45)
[2020-01-13] MEDS ORDERED: LIDOCAINE 1% INJ-PF (10 MG/ML) 30 ML SDV NEB ONE (13:45)
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
[2020-01-13 14:32] VITALS: BP 128/78
[2020-01-13 16:12] LABS: CHLAM PCR DETECTED (NOT DETECT)
== END 2020-01-13 14:31 | disposition home or self-care (01) ==
LOC: ER 12:27
DX: Z20.2 Contact with and (suspected) exposure to infections with a predominantly sexual mode of transmission (principal); I10 Essential (primary) hypertension; J45.909 Unspecified asthma, uncomplicated
CPT/HCPCS: 99284; 96372; 87491; 87591; J3490; J0696

== ENCOUNTER 2020-01-31 15:01 | Emergency (ER) | payer SELFPAY ==
[2020-01-31] MEDS ORDERED: CEFTRIAXONE INJ 250 MG VIAL IM ONE (15:12)
--- NOTE | 2020-01-31 15:12 | ER Document Report ---
ED GI/ - General Chief Complaint: STD Exposure Stated Complaint: STD CHECK Time Seen by Provider: 01/31/20 15:08 Primary Care Provider: FRANCOIS HOOKS MD [NO LOCAL MD] - Follow up in 1 week TRAVEL OUTSIDE OF THE [place] IN LAST 30 DAYS: No - HPI Notes: 01/31/20 15:24 25-year-old male to the emergency department with complaints of dysuria, bilateral testicular pain that has been going on for about 4 days. He states that he was treated several weeks ago for possible STD but has had sex since. States he is concerned that the infection did not go away. Denies testicular swelling, genital lesion, abd pain. - Related Data Allergies/Adverse Reactions: No Known Allergies Allergy (Verified 10/30/19 04:41) Past Medical History - General Information source: Patient - Social History Smoking Status: Current Some Day Smoker Frequency of alcohol use: Occasional Drug Abuse: None Family History: Reviewed & Not Pertinent, Arthritis, DM, Hypertension, Ma lignancy - Past Medical History Cardiac Medical History: Reports: Hx Hypertension Pulmonary Medical History: Reports: Hx Asthma Musculoskeletal Medical History: Reports Hx Musculoskeletal Trauma Psychiatric Medical History: Reports: Hx Attention Deficit Hyperactivity Disorder Past Surgical History: Reports: Hx Adenoidectomy, Hx Tonsillectomy - Immunizations Hx Diphtheria, Pertussis, Tetanus Vaccination: Yes Review of Systems - Review of Systems Constitutional: denies: Chills, Fever EENT: No symptoms reported Cardiovascular: denies: Chest pain, Palpitations, Dizziness, Lightheaded Respiratory: denies: Cough, Short of breath Gastrointestinal: denies: Abdominal pain, Diarrhea, Nausea, Vomiting Genitourinary: Dysuria. denies: Frequency, Flank pain, Hematuria Male Genitourinary: See HPI, Testicular pain Skin: No symptoms reported Hematologic/Lymphatic: No symptoms reported Neurological/Psychological: No symptoms reported -: Yes All other systems reviewed and negative Physical Exam - Vital signs Vitals: Temp Pulse Resp BP Pulse Ox 98.8 F 63 18 131/66 H 98 01/31/20 15:03 01/31/20 15:03 01/31/20 15:03 01/31/20 15:03 01/31/20 15:03 Interpretation: Normal - General General appearance: Appears well, Alert In distress: None - HEENT Head: Normocephalic, Atraumatic Eyes: Normal Pupils: PERRL Neck: Normal, Supple - Respiratory Respiratory status: No respiratory distress Chest status: Nontender Breath sounds: Normal Chest palpation: Normal - Cardiovascular Rhythm: Regular Heart sounds: Normal auscultation Murmur: No - Abdominal Inspection: Normal Distension: No distension Bowel sounds: Normal Tenderness: Nontender Organomegaly: No organomegaly - Neurological Neuro grossly intact: Yes Cognition: Normal Orientation: AAOx4 [place] Coma Scale Eye Opening: Spontaneous [place] Coma Scale Verbal: Oriented [place] Coma Scale Motor: Obeys Commands Kristy Coma Scale Total: 15 Speech: Normal Motor strength normal: LUE, RUE, LLE, RLE Sensory: Normal - Skin Skin Temperature: Warm Skin Moisture: Dry Skin Color: Normal Course - Re-evaluation Re-evalutation: 01/31/20 Impression: Testicular pain, epididymal cyst, dysuria. Noted UA and noted urine GC and chlamydia which was negative. Daughter high suspicion that this is an STD source. Will place on 2 weeks of doxycycline. Was given a shot of Rocephin here. 11 follow-up with urology. Patient agrees with the plan. Educated on no sex for 2 weeks. - Vital Signs Vital signs: Temp Pulse Resp BP Pulse Ox 98.3 F 57 L 18 124/82 100 01/31/20 18:23 01/31/20 18:23 01/31/20 18:23 01/31/20 18:23 01/31/20 18:23 Discharge - Discharge Clinical Impression: Testicular/scrotal pain, Epididymal cyst, Dysuria Condition: Stable Disposition: HOME, SELF-CARE Instructions: Testicular Pain ([facility]) Additional Instructions: Complete all antibiotics. No sex for 2 weeks. Follow-up with the urologist listed without fail. Return if worsening symptoms. Prescriptions: Doxycycline Hyclate 100 mg PO BID #20 tablet.dr Sanabria [Naprosyn 375 Mg Tablet] 375 mg PO BID #20 tablet Referrals: FRANCOIS HOOKS MD [NO LOCAL MD] - Follow up in 1 week
[2020-01-31] MEDS ORDERED: DOXYCYCLINE HYCLATE 100 MG TABLET PO ONE (15:23)
[2020-01-31 15:53] LABS: APPEARANCE,URINE CLEAR; BILIRUBIN,URINE NEGATIVE (NEGATIVE); COLOR,URINE YELLOW; GLUCOSE, URINE NEGATIVE (NEGATIVE); KETONES,URINE NEGATIVE (NEGATIVE); LEUKOCYTE ESTERASE,URINE NEGATIVE (NEGATIVE); NITRITE,URINE NEGATIVE (NEGATIVE); PROTEIN,URINE NEGATIVE (NEGATIVE); URINE SPECIFIC GRAVITY 1.024; UROBILINOGEN,URINE NEGATIVE mg/dL (<2.0)
[2020-01-31 17:17] LABS: CHLAM PCR NOT DETECTED (NOT DETECT)
[2020-01-31 18:24] VITALS: BP 124/82
--- NOTE | 2020-01-31 18:26 | RADIOLOGY REPORT (SQ) ---
EXAM DESCRIPTION: U/S SCROTUM W/DOPPLER IMAGES COMPLETED DATE/TIME: 01/31/2020 5:53 pm REASON FOR STUDY: testicular pain COMPARISON: None. TECHNIQUE: Static and realtime swanson scale imaging of the scrotum and testes. Selected color Doppler and spectral images recorded to document blood flow. LIMITATIONS: None. FINDINGS: RIGHT: TESTICLE: Normal size, 4.2 cm. Normal echotexture. Blood flow with slightly dilated vessels. Small t esticular cyst. 2 mm. No mass. EPIDIDYMIS: 2 cysts in the epididymal head. The larger measures 7 mm in largest diameter. HYDROCELE OR VARICOCELE: Small hydrocele HERNIA OR EXTRA-TESTICULAR MASS: No. OTHER: No other significant finding. LEFT: TESTICLE: Normal size, 4.6 cm. Normal echotexture. Blood flow with slightly dilated vessels. 4 mm t esticular cyst. No mass. EPIDIDYMIS: 8 mm cyst in the epididymal head. HYDROCELE OR VARICOCELE: Small hydrocele HERNIA OR EXTRA-TESTICULAR MASS: No. OTHER: No other significant finding. IMPRESSION: There is mild bilateral hyperemia. No olga orchitis or epididymitis. Epididymal cysts are present. Small testicular cyst is seen on each side. TECHNICAL DOCUMENTATION: JOB ID: [id number] 2010 [employer]- All Rights Reserved Reading location - IP/workstation name: [email or web address]
== END 2020-01-31 18:26 | disposition home or self-care (01) ==
LOC: ER 15:01
DX: N50.3 Cyst of epididymis (principal); R30.0 Dysuria; N50.812 Left testicular pain; N50.811 Right testicular pain; Z20.2 Contact with and (suspected) exposure to infections with a predominantly sexual mode of transmission; F17.200 Nicotine dependence, unspecified, uncomplicated; I10 Essential (primary) hypertension; J45.909 Unspecified asthma, uncomplicated
CPT/HCPCS: 99285; 96372; 81001; 87491; 87591; 76870; 93976; J0696

== ENCOUNTER 2020-02-08 22:23 | Emergency (ER) | payer SELFPAY ==
[2020-02-08 23:36] VITALS: BP 132/68
[2020-02-09] MEDS ORDERED: PENICILLIN V POTASSIUM 500 MG TABLET PO ONE (00:19)
[2020-02-09] MEDS ORDERED: DIPH/PERTUSS(ACELL)/TETANUS VAC/PF 0.5 ML SYR (>=10YO) IM ONE (00:20)
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
== END 2020-02-09 00:30 | disposition home or self-care (01) ==
LOC: ER 22:23
DX: S02.5XXB Fracture of tooth (traumatic), initial encounter for open fracture (principal); S00.81XA Abrasion of other part of head, initial encounter; W50.0XXA Accidental hit or strike by another person, initial encounter; Y93.83 Activity, rough housing and horseplay; Z23 Encounter for immunization
CPT/HCPCS: 90471; 90715; 99283

== ENCOUNTER 2020-04-02 15:17 | Emergency (ER) | payer SELFPAY ==
[2020-04-02 15:27] VITALS: BP 119/71
--- NOTE | 2020-04-02 15:42 | ER Document Report ---
HPI - HPI Time Seen by Provider: 04/02/20 15:30 Notes: 25-year-old male patient presenting with left-sided testicular pain. Patient reports pain ongoing for 2 months after he was treated for chlamydia. Patient reports no penile discharge, no dysuria. No swelling at the area. He states the pain has not changed over the last 2 months. He was seen here and was unable to afford his medications. - ROS Systems Reviewed and Negative: Yes All other systems reviewed and negative - REPRODUCTIVE Notes: L testicular pain Past Medical History - General Information source: Patient - Social History Smoking Status: Never Smoker Frequency of alcohol use: None Drug Abuse: None Family History: Reviewed & Not Pertinent, Arthritis, DM, Hypertension, Malignancy - Past Medical History Cardiac Medical History: Reports: Hx Hypertension Pulmonary Medical History: Reports: Hx Asthma Musculoskeletal Medical History: Reports Hx Musculoskeletal Trauma Psychiatric Medical History: Reports: Hx Attention Deficit Hyperactivity Disorder Past Surgical History: Reports: Hx Adenoidectomy, Hx Tonsillectomy - Immunizations Hx Diphtheria, Pertussis, Tetanus Vaccination: Yes Vertical Provider Document - CONSTITUTIONAL Notes: PHYSICAL EXAMINATION: GENERAL: Well-appearing, well-nourished and in no acute distress. HEAD: Atraumatic, normocephalic. EYES: Pupils equal round extraocular movements intact, conjunctiva are normal. ENT: Nares patent NECK: Normal range of motion LUNGS: No respiratory distress Musculoskeletal: Normal range of motion NEUROLOGICAL: Normal speech, normal gait. PSYCH: Normal mood, normal affect. SKIN: Warm, Dry, normal turgor, no rashes or lesions noted. - INFECTION CONTROL TRAVEL OUTSIDE OF THE [place] IN LAST 30 DAYS: No Course - Re-evaluation Re-evalutation: Patient was seen here 2 months ago diagnosed with hydrocele and 2 testicular cysts. Patient was prescribed doxycycline. Patient reports he was unable to get these medications filled. Patient continues to have the same pain. He states the pain has not worsened. He is requesting that we put in a new prescription for him as he has the money to afford it now. He has declined any work-up today, declines to give us a urine sample or to have a repeat ultrasound. - Vital Signs Vital signs: Temp Pulse Resp BP Pulse Ox 98.5 F 59 L 20 119/71 100 04/02/20 15:26 04/02/20 15:26 04/02/20 15:26 04/02/20 15:26 04/02/20 15:26 Discharge - Discharge Clinical Impression: Medication refill Condition: Stable Disposition: HOME, SELF-CARE Additional Instructions: Please take medication as prescribed. Return if any new or worsening symptoms. Prescriptions: Doxycycline Hyclate 100 mg PO BID #20 tablet.
== END 2020-04-02 15:50 | disposition home or self-care (01) ==
LOC: ER 15:17
DX: Z76.0 Encounter for issue of repeat prescription (principal); N50.812 Left testicular pain; I10 Essential (primary) hypertension; J45.909 Unspecified asthma, uncomplicated
CPT/HCPCS: 99283